=== PATIENT | female | born 1990 ===

== ENCOUNTER 2023-08-21 01:12 | Emergency (ER) | payer SELFPAY ==
[2023-08-21] MEDS: predniSONE 20 MG Tab PO ONE (01:40)
[2023-08-21] MEDS: Take Home: predniSONE 20 MG, 4 Tab Pack PO ONE (02:05)
== END 2023-08-21 02:07 | disposition home or self-care (01) ==
LOC: DL.ED 01:12
DX: J45.901 Unspecified asthma with (acute) exacerbation (principal); I10 Essential (primary) hypertension; Z79.51 Long term (current) use of inhaled steroids; Z91.048 Other nonmedicinal substance allergy status; Z86.16 Personal history of COVID-19
CPT/HCPCS: 99284; A9270-GY; J7512